=== PATIENT | female | born 1965 | race Caucasian/White ===

== ENCOUNTER → 2017-01-30 | Outpatient (CLI) | payer OTHER ==
[~2017-01-30] MED LIST: ALBU18HF INH; CETI10CA PO; CYAN1TAB29 PO; CYCL5TAB PO; FLUT1DIS3 INH; IBUP1TAB14 PO; IBUP200T5 PO; MULT-658 PO; PANT40TA5 PO; PROM25TA10 PO; RIZA10TA5 PO; TOPI100T24 PO; TRAM50TA2 PO; magnesium PO
== END | disposition home or self-care (01) ==
LOC: CFH 09:15
PROVIDERS: ATTEND Family Medicine
DX: Z12.31 Encounter for screening mammogram for malignant neoplasm of breast (principal)
CPT/HCPCS: 77063; G0202

== ENCOUNTER → 2018-05-02 | Outpatient (CLI) | payer OTHER ==
[~2018-05-02] MED LIST changes: +IBUP-1484 PO; -IBUP200T5 PO
== END | disposition home or self-care (01) ==
LOC: CFH 07:40
PROVIDERS: ATTEND Family Medicine
DX: Z12.31 Encounter for screening mammogram for malignant neoplasm of breast (principal)
CPT/HCPCS: 77067